=== PATIENT | male | born 1990 | race American Indian/Alaskan Native ===

== ENCOUNTER 2016-11-05 17:57 | Emergency (ER) | payer SELFPAY ==
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
[2016-11-06 02:18] VITALS: BP 138/77
== END 2016-11-06 01:58 | disposition home or self-care (01) ==
LOC: ED 17:57
DX: M25.511 Pain in right shoulder (principal); F31.9 Bipolar disorder, unspecified; F90.9 Attention-deficit hyperactivity disorder, unspecified type; F98.8 Other specified behavioral and emotional disorders with onset usually occurring in childhood and adolescence; F17.200 Nicotine dependence, unspecified, uncomplicated; V09.00XA Pedestrian injured in nontraffic accident involving unspecified motor vehicles, initial encounter; Y93.89 Activity, other specified; Y99.8 Other external cause status; Y92.89 Other specified places as the place of occurrence of the external cause
CPT/HCPCS: 99283

== ENCOUNTER 2017-02-09 09:43 | Emergency (ER) | payer SELFPAY ==
[2017-02-09 10:18] LABS: Basophils % (Auto) 1.1 % (0.0-1.8); Eosinophils % (Auto) 3.6 % (0.0-4.3); Hematocrit 47.4 % (35.5-45.6); Hemoglobin 15.2 gm/dl (11.8-15.2); Mean Corpuscular HGB Conc 32 % (32-34); Mean Corpuscular Hemoglobin 27 pg (28-32); Mean Corpuscular Volume 84 fl (84-94); Platelet Count 228 K/mm3 (140-440); Red Blood Count 5.63 M/mm3 (3.65-5.03); Red Cell Distribution Width 14.8 % (13.2-15.2); White Blood Count 10.6 K/mm3 (4.5-11.0)
[2017-02-09 11:00] LABS: Alanine Aminotransferase 25 units/L (7-56); Albumin 4.3 g/dL (3.9-5); Albumin/Globulin Ratio 1.7 %; Alkaline Phosphatase 74 units/L (35-129); Anion Gap 15 mmol/L; BUN/Creatinine Ratio 11.11; Blood Urea Nitrogen 10 mg/dL (9-20); Carbon Dioxide 26 mmol/L (22-30); Chloride 103.5 mmol/L (98-107); Glucose 97 mg/dL (75-100); Lipase 26 units/L (13-60); Potassium 4.3 mmol/L (3.6-5.0); Sodium 140 mmol/L (137-145); Total Protein 6.8 g/dL (6.3-8.2)
[2017-02-09 11:08] LABS: Bilirubin,Urine NEG (Negative); Blood,Urine NEG (Negative); Ketones,Urine NEG (Negative); Leukocyte Esterase,Urine NEG (Negative); Mucus,Urine FEW /HPF; Nitrite,Urine NEG (Negative); Protein,Urine <15 mg/dL mg/dL (Negative); Urobilinogen,Urine < 2.0 mg/dL (<2.0); WBC,Urine < 1.0 /HPF (0.0-6.0)
[2017-02-09 12:42] VITALS: BP 144/84
--- NOTE | 2017-02-09 13:04 | Emergency Department Report ---
ED Abdominal Pain HPI - General Chief Complaint: Abdominal Pain Stated Complaint: VOMITING Time Seen by Provider: 02/09/17 12:54 Source: patient Mode of arrival: Ambulatory Limitations: No Limitations - History of Present Illness Initial Comments: This is a 26-year-old male diagnosed at [facility] with Escherichia coli diarrhea. He was given ciprofloxacin and Zofran for nausea he stated that he still had the diarrhea he is nausea is better that he is out of his Zofran medication. Denied any fever. MD Complaint: abdominal pain -: Gradual, week(s) Location: diffuse Migration to: no migration Quality: cramping Associated Symptoms: nausea, diarrhea. denies: vomiting - Related Data Home Medications Medication Instructions Recorded Confirmed Last Taken Ciprofloxacin HCl [Ciprofloxacin 500 mg PO BID 02/09/17 02/09/17 02/08/17 20:00 TAB] Previous Rx's Medication Instructions Recorded Last Taken Type Ciprofloxacin HCl [Ciprofloxacin 500 mg PO Q12H #20 tab 02/09/17 Unknown Rx TAB] Ondansetron [Zofran Odt] 4 mg PO Q8HR PRN #14 tab.rapdis 02/09/17 Unknown Rx metroNIDAZOLE [Flagyl CAP] 375 mg PO Q8H #21 capsule 02/09/17 Unknown Rx Allergies Allergy/AdvReac Type Severity Reaction Status Date / Time No Known Allergies Allergy Verified 02/09/17 09:53 ED Review of Systems ROS: Stated complaint: VOMITING Other details as noted in HPI Comment: All other systems reviewed and negative Constitutional: denies: chills, fever Respiratory: denies: shortness of breath, SOB with exertion Cardiovascular: denies: chest pain, dyspnea on exertion Gastrointestinal: abdominal pain, nausea, diarrhea. denies: vomiting, constipation, hematemesis Skin: denies: rash, change in color ED Past Medical Hx - Past Medical History Hx Psychiatric Treatment: Yes (bipolar; ADD; ADHD) Additional medical history: E COLI - Surgical History Past Surgical History?: No - Social History Smoking Status: Current Every Day Smoker Substance Use Type: Alcohol - Medications Home Medications: Home Medications Medication Instructions Recorded Confirmed Last Taken Type Ciprofloxacin HCl [Ciprofloxacin 500 mg PO BID 02/09/17 02/09/17 02/08/17 20:00 History TAB] Ciprofloxacin HCl [Ciprofloxacin 500 mg PO Q12H #20 tab 02/09/17 Unknown Rx TAB] Ondansetron [Zofran Odt] 4 mg PO Q8HR PRN #14 tab.rapdis 02/09/17 Unknown Rx metroNIDAZOLE [Flagyl CAP] 375 mg PO Q8H #21 capsule 02/09/17 Unknown Rx ED Physical Exam - General Limitations: No Limitations General appearance: alert - Eye Eye exam: Present: normal appearance - ENT ENT exam: Present: normal exam - Neck Neck exam: Present: normal inspection - Respiratory Respiratory exam: Present: normal lung sounds bilaterally - Cardiovascular Cardiovascular Exam: Present: regular rate, normal rhythm, normal heart sounds - GI/Abdominal GI/Abdominal exam: Present: soft. Absent: distended, tenderness, guarding, rebound, rigid, mass, bruit, pulsatile mass, hernia - Back Exam Back exam: Present: normal inspection. Absent: CVA tenderness (R), CVA tenderness (L) - Neurological Exam Neurological exam: Present: alert, oriented X3, CN II-XII intact - Skin Skin exam: Present: warm, intact, normal color ED Course Vital Signs 02/09/17 02/09/17 09:56 12:41 Temperature 98.1 F 98.0 F Pulse Rate 63 72 Respiratory 18 16 Rate Blood Pressure 148/97 Blood Pressure 144/84 [Left] O2 Sat by Pulse 100 99 Oximetry - Reevaluation(s) Reevaluation #1: 02/09/17 13:03 Patient will need to continue ciprofloxacin for another 4 days and I would add Flagyl L gave him Zofran ODT. We gave him a referral to Dr. BESS ED Medical Decision Making - Lab Data Result diagrams: 02/09/17 10:08 02/09/17 10:08 Critical care attestation.: If time is entered above; I have spent that time in minutes in the direct care of this critically ill patient, excluding procedure time. ED Disposition Clinical Impression: Colitis Disposition: DC-01 TO HOME OR SELFCARE Is pt being admited?: No Condition: Stable Instructions: Infectious Colitis (ED) Referrals: PRIMARY CARE, [Primary Care Provider] - 3-5 Days
[2017-02-09] MEDS ORDERED: ZOFRAN IM ONE (13:06)
== END 2017-02-09 13:26 | disposition home or self-care (01) ==
LOC: ED 09:43
DX: K52.9 Noninfective gastroenteritis and colitis, unspecified (principal); F17.200 Nicotine dependence, unspecified, uncomplicated
CPT/HCPCS: 36415; 80053; 81001; 83690; 85025; 96372; 99283; J2405

== ENCOUNTER 2018-03-24 17:02 | Emergency (ER) | payer SELFPAY ==
--- NOTE | 2018-03-24 19:31 | XRay Report ---
FINAL REPORT PROCEDURE: Left ankle. TECHNIQUE: AP and lateral views. HISTORY: Ankle injury. COMPARISON: No prior studies are available for comparison. FINDINGS: The bones appear intact without fracture or dislocation. The joint spaces appear normal. The soft tissues are unremarkable. IMPRESSION: Normal study.
[2018-03-24] MEDS ORDERED: NORCO 5/325 PO ONE (19:37)
--- NOTE | 2018-03-24 20:19 | Emergency Department Report ---
ED Lower Extremity HPI - General Chief Complaint: Extremity Injury, Lower Stated Complaint: LFT ANKLE POSS BROKE/PAIN Time Seen by Provider: 03/24/18 19:31 Source: patient Mode of arrival: Wheelchair Limitations: No Limitations - History of Present Illness Initial Comments: Patient is a 27-year-old female who presents for left ankle pain and swelling states he twisted it playing basketball today states he everted ankle felt a snap pop and now unable to ambulate patient moderate swelling aching tingling numbness radiating to the left great toe. Pain is exacerbated by attempted weightbearing pain is relieved by offloading and elevating. There are no open wounds bleeding or lacerations noted. MD Complaint: ankle injury Onset/Timin -: hour(s) Injury: Ankle: Right Type of Injury: eversion Place: street/outdoors Severity: moderate Severity scale (0 -10): 6 Improves With: rest Worsens With: weight bearing, movement, palpation Context: running, jumping Associated Symptoms: swelling, tingling, able to partially bear weight - Related Data Home Medications Medication Instructions Recorded Confirmed Last Taken Ciprofloxacin HCl [Ciprofloxacin 500 mg PO BID 02/09/17 02/09/17 02/08/17 20:00 TAB] Previous Rx's Medication Instructions Recorded Last Taken Type Ciprofloxacin HCl [Ciprofloxacin 500 mg PO Q12H #20 tab 02/09/17 Unknown Rx TAB] Ondansetron [Zofran Odt] 4 mg PO Q8HR PRN #14 tab.rapdis 02/09/17 Unknown Rx metroNIDAZOLE [Flagyl CAP] 375 mg PO Q8H #21 capsule 02/09/17 Unknown Rx Acetaminophen/Codeine [Tylenol 1 tab PO Q6H PRN 3 Days #12 tab 03/24/18 Unknown Rx /Codeine # 3 tab] Cyclobenzaprine [Flexeril] 10 mg PO TID PRN #30 tablet 03/24/18 Unknown Rx Naproxen [Naprosyn] 500 mg PO BID #30 tablet 03/24/18 Unknown Rx Allergies Allergy/AdvReac Type Severity Reaction Status Date / Time No Known Allergies Allergy Verified 02/09/17 09:53 ED Review of Systems ROS: Stated complaint: LFT ANKLE POSS BROKE/PAIN Other details as noted in HPI Constitutional: denies: chills, fever Eyes: denies: eye pain, eye discharge, vision change ENT: denies: ear pain, throat pain Respiratory: denies: cough, shortness of breath, wheezing Cardiovascular: denies: chest pain, palpitations Endocrine: no symptoms reported Gastrointestinal: denies: abdominal pain, nausea, diarrhea Genitourinary: denies: urgency, dysuria Musculoskeletal: joint swelling Skin: denies: rash, lesions Neurological: denies: headache, weakness, paresthesias Psychiatric: denies: anxiety, depression Hematological/Lymphatic: denies: easy bleeding, easy bruising ED Past Medical Hx - Past Medical History Previous Medical History?: Yes Hx Psychiatric Treatment: Yes (bipolar; ADD; ADHD) Additional medical history: E COLI - Surgical History Past Surgical History?: No - Social History Smoking Status: Current Every Day Smoker Substance Use Type: None - Medications Home Medications: Home Medications Medication Instructions Recorded Confirmed Last Taken Type Ciprofloxacin HCl [Ciprofloxacin 500 mg PO BID 02/09/17 02/09/17 02/08/17 20:00 History TAB] Ciprofloxacin HCl [Ciprofloxacin 500 mg PO Q12H #20 tab 02/09/17 Unknown Rx TAB] Ondansetron [Zofran Odt] 4 mg PO Q8HR PRN #14 tab.rapdis 02/09/17 Unknown Rx metroNIDAZOLE [Flagyl CAP] 375 mg PO Q8H #21 capsule 02/09/17 Unknown Rx Acetaminophen/Codeine [Tylenol 1 tab PO Q6H PRN 3 Days #12 tab 03/24/18 Unknown Rx /Codeine # 3 tab] Cyclobenzaprine [Flexeril] 10 mg PO TID PRN #30 tablet 03/24/18 Unknown Rx Naproxen [Naprosyn] 500 mg PO BID #30 tablet 03/24/18 Unknown Rx ED Physical Exam - General Limitations: No Limitations General appearance: alert, in no apparent distress - Head Head exam: Present: atraumatic, normocephalic - Eye Eye exam: Present: normal appearance - ENT ENT exam: Present: mucous membranes moist - Neck Neck exam: Present: normal inspection - Respiratory Respiratory exam: Present: normal lung sounds bilaterally. Absent: respiratory distress - Cardiovascular Cardiovascular Exam: Present: regular rate, normal rhythm. Absent: systolic murmur, diastolic murmur, rubs, gallop - GI/Abdominal GI/Abdominal exam: Present: soft, normal bowel sounds - Rectal Rectal exam: Present: deferred - Extremities Exam Extremities exam: Present: tenderness, normal capillary refill, joint swelling. Absent: calf tenderness - Expanded Lower Extremity Exam Left Ankle exam: Present: tenderness, swelling, ecchymosis. Absent: abrasion, laceration, deformity, crepidus, dislocation, erythema, anterior draw sign Foot/Toe exam: Present: normal inspection, full ROM, swelling. Absent: ecchymosis, deformity, puncture wound, calcaneal tenderness, tenderness at base of 5th metatarsal Neuro vascular tendon exam: Present: no vascular compromise Gait: Positive: unable to bear weight - Back Exam Back exam: Present: normal inspection. Absent: tenderness - Neurological Exam Neurological exam: Present: alert, oriented X3, normal gait, reflexes normal - Psychiatric Psychiatric exam: Present: normal affect, normal mood - Skin Skin exam: Present: warm, dry, intact, normal color. Absent: rash ED Course Vital Signs 03/24/18 03/24/18 17:06 19:42 Temperature 98.9 F Pulse Rate 111 H Respiratory 16 18 Rate Blood Pressure 166/97 O2 Sat by Pulse 98 Oximetry ED Lower Extremity MDM - Radiology Data Radiology results: report reviewed, image reviewed X-rays normal no fracture no soft tissue abnormality - Medical Decision Making X-rays read as normal no soft tissue abnormality noted swelling and ecchymosis left lateral ankle is unable to ambulate plan posterior short leg with stirrups neck crutches NSAIDs and muscle relaxants follow with orthopedics in 2-3 days patient verbalized understanding and agreement with same patient is discharged home in stable condition at this time sweats at completed this time appropriately at 2 section [employer] less than 3 seconds bilaterally patient and rheumatoid with crutches demonstrated safe use of samel Critical care attestation.: If time is entered above; I have spent that time in minutes in the direct care of this critically ill patient, excluding procedure time. ED Disposition Clinical Impression: Sprain of left ankle Qualifiers: Encounter type: initial encounter Involved ligament of ankle: tibiofibular ligament Qualified Code(s): S93.432A - Sprain of tibiofibular ligament of left ankle, initial encounter Disposition: TO HOME OR SELFCARE Is pt being admited?: No Does the pt Need Aspirin: No Condition: Good Instructions: Ankle Stirrup Splint (ED), Ankle Sprain (ED), Ankle Exercises ( GEN) Prescriptions: Acetaminophen/Codeine [Tylenol /Codeine # 3 tab] 1 tab PO Q6H PRN 3 Days #12 tab PRN Reason: severe pain Cyclobenzaprine [Flexeril] 10 mg PO TID PRN #30 tablet PRN Reason: Muscle Spasm Naproxen [Naprosyn] 500 mg PO BID #30 tablet Referrals: FRANNIE CERVANTES MD [Staff Physician] - 3-5 Days Forms: Work/School Release Form(ED) Time of Disposition: 20:26
--- NOTE | 2018-03-24 20:38 | XRay Report ---
FINAL REPORT PROCEDURE: XR TIBIA FIBULA 2V LT TECHNIQUE: LEFT tibia and fibula radiographs, AP and lateral views. CPT 19410 HISTORY: leg injury COMPARISON: No prior studies are available for comparison. FINDINGS: Fracture (s) and/or Dislocation(s): None . Joint space(s): Normal . Soft tissues: Normal . Bone mineralization: Normal . Foreign bodies: None . IMPRESSION: Normal Examination.
[2018-03-24 21:06] VITALS: BP 158/94
== END 2018-03-24 21:06 | disposition home or self-care (01) ==
LOC: ED 17:02
DX: S93.432A Sprain of tibiofibular ligament of left ankle, initial encounter (principal); F31.9 Bipolar disorder, unspecified; F90.9 Attention-deficit hyperactivity disorder, unspecified type; F17.200 Nicotine dependence, unspecified, uncomplicated; F98.8 Other specified behavioral and emotional disorders with onset usually occurring in childhood and adolescence; X50.0XXA Overexertion from strenuous movement or load, initial encounter; Y93.67 Activity, basketball; Y92.410 Unspecified street and highway as the place of occurrence of the external cause; Y99.8 Other external cause status
CPT/HCPCS: 99283

== ENCOUNTER 2018-11-27 15:20 | Emergency (ER) | payer OTHER ==
[2018-11-27 15:28] VITALS: BP 141/95
--- NOTE | 2018-11-27 15:29 | Emergency Department Report ---
Chief Complaint: Earache Stated Complaint: (L) EARDRUM/INJURY Time Seen by Provider: 11/27/18 15:27 - HPI History of Present Illness: This is a 28 y.o. M. that presents to the ER with left ear pain. Patient put the metal tip of a comb in his ear to scratch his left ear. He reports pain and hearing a pop. Denies discharge - Exam Vital Signs: Vital Signs 11/27/18 15:26 Temperature 98.0 F Pulse Rate 82 Respiratory 18 Rate Blood Pressure 141/95 O2 Sat by Pulse 100 Oximetry MSE screening note: Focused history and physical exam performed. Due to findings the following was ordered: This initial assessment/diagnostic orders/clinical plan/treatment(s) is/are subject to change based on patient's health status, clinical progression and re- assessment by fellow clinical providers in the ED. Further treatment and workup at subsequent clinical providers discretion. Patient/guardians urged not to elope from the ED as their condition may be serious if not clinically assessed and managed. Initial orders include: 1- Patient sent to [facility] for further evaluation and treatment ED Disposition for MSE Condition: Stable
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
== END 2018-11-27 16:00 | disposition home or self-care (01) ==
LOC: ED 15:20
DX: H72.90 Unspecified perforation of tympanic membrane, unspecified ear (principal)
CPT/HCPCS: 99282